=== PATIENT | female | born 1945 | race Caucasian/White ===

== ENCOUNTER → 2018-09-25 | Outpatient (CLI) | payer OTHER ==
[2018-09-27 15:07] LABS: HPV 16 Negative (Negative); HPV 18 Negative (Negative); HPV OTHER HR TYPES Negative (Negative)
== END | disposition home or self-care (01) ==
LOC: LAB SHORT 16:27 → LAB 16:27
PROVIDERS: Obstetrics & Gynecology Gynecology
DX: Z91.89 Other specified personal risk factors, not elsewhere classified (principal)
CPT/HCPCS: 87624; G0123

== ENCOUNTER → 2020-10-19 | Outpatient (CLI) | payer OTHER | END | disposition home or self-care (01) | LOC: LAB 11:10 → LAB SHORT 11:10 | DX: D22.61 Melanocytic nevi of right upper limb, including shoulder (principal); L81.4 Other melanin hyperpigmentation | CPT/HCPCS: 88305 ==

== ENCOUNTER 2024-07-25 11:28 | Day surgery (SDC) | payer OTHER ==
[~2024-07-25] VITALS: Ht 157.5 cm; Wt 56.5 kg
[~2024-07-25 11:28] MED LIST: Balanced Salt Epinephrine Irrigation Solution 500 mL IR SCH; Lidocaine HCl/Pf 1% 5 ML VIAL XX SCH; Moxifloxacin HCL 0.5 MG/0.1 ML 0.4MLSYR LEFTEYE SCH; PHENYLEPHRINE\\TROPICAMIDE\\TETRACAINE OPHTHALMIC DILATING SOLN LEFTEYE PRN; Povidone-Iodine 450 DROP/30 ML Solution LEFTEYE SCH; Povidone-Iodine 450 DROP/30 ML Solution ONE; Tetracaine HCl/Pf 0.5% Opth Soln 4 ml ONE; Triamcinolone Inj Susp 40 MG / ML 1ML Vial INJ SCH; Triamcinolone Inj Susp 40 MG / ML 1ML Vial ONE
[2024-07-25] MEDS ORDERED: Crestor40 MG PO (12:16)
[2024-07-25] MEDS ORDERED: POTCHL20ER PO (12:16)
[2024-07-25] MEDS ORDERED: CELE200 PO (12:16)
[2024-07-25] MEDS ORDERED: ERGO400 PO (12:17)
[2024-07-25] MEDS ORDERED: COQ-10100 MG PO (12:17)
[2024-07-25] MEDS ORDERED: MAGNESIUM OXID500 MG PO (12:17)
[2024-07-25] MEDS ORDERED: NS 1,000 ML IV ONE (12:37)
[2024-07-25] MEDS ORDERED: FentaNYL Citrate 50 MCG/ML 2 ML Injection ONE (12:38)
[2024-07-25] MEDS ORDERED: Midazolam HCl 1MG / ML 2ML Vial ONE (12:39)
--- NOTE | 2024-07-25 12:39 | NUR ---
07/25/24 1233 JERAD KAUFFMAN CALL LIGHT IN HAND, GURNEY RAILS UP, BRAKES LOCKED. PT DENIES NEEDS.
[2024-07-25 13:26] VITALS: BP 145/75
--- NOTE | 2024-07-25 13:26 | NUR ---
07/25/24 1326 Sandra Templeton DAUGHTER BROUGHT TO BEDSIDE
== END 2024-07-25 13:50 | disposition home or self-care (01) ==
LOC: ORSCSDS 11:28
PROVIDERS: Ophthalmology
PROC: 08RK3JZ Replacement of Left Lens with Synthetic Substitute, Percutaneous Approach (ICD-10-PCS; principal; 2024-07-25 13:00)
DX: H25.813 Combined forms of age-related cataract, bilateral (principal); I10 Essential (primary) hypertension; Z79.899 Other long term (current) drug therapy
CPT/HCPCS: J2250; J3010; J3301; V2632

== ENCOUNTER 2024-09-10 21:11 | Emergency (ER) | payer OTHER ==
[~2024-09-10] VITALS: Ht 160 cm; Wt 55.3 kg
[~2024-09-10 21:11] MED LIST changes: -Balanced Salt Epinephrine Irrigation Solution 500 mL IR SCH; +CELE200 PO; +COQ-10100 MG PO; +Crestor40 MG PO; +ERGO400 PO; -Lidocaine HCl/Pf 1% 5 ML VIAL XX SCH; +MAGNESIUM OXID500 MG PO; -Moxifloxacin HCL 0.5 MG/0.1 ML 0.4MLSYR LEFTEYE SCH; -PHENYLEPHRINE\\TROPICAMIDE\\TETRACAINE OPHTHALMIC DILATING SOLN LEFTEYE PRN; +POTCHL20ER PO; -Povidone-Iodine 450 DROP/30 ML Solution LEFTEYE SCH; -Povidone-Iodine 450 DROP/30 ML Solution ONE; -Tetracaine HCl/Pf 0.5% Opth Soln 4 ml ONE; -Triamcinolone Inj Susp 40 MG / ML 1ML Vial INJ SCH; -Triamcinolone Inj Susp 40 MG / ML 1ML Vial ONE
[2024-09-10 23:34] VITALS: BP 138/80
== END 2024-09-10 23:33 | disposition home or self-care (01) ==
LOC: ER 21:11
DX: S09.93XA Unspecified injury of face, initial encounter (principal); S09.92XA Unspecified injury of nose, initial encounter; W18.30XA Fall on same level, unspecified, initial encounter; Z79.899 Other long term (current) drug therapy; Z79.2 Long term (current) use of antibiotics
CPT/HCPCS: 70450; 99283-25